=== PATIENT | male | born 1985 ===

== ENCOUNTER → 2021-04-02 | Outpatient (CLI) | payer MEDICAID ==
[~2021-04-02] MED LIST: ALBUTEROL SULF 2.5 MG/0.5ML(0.5%) NEB SOLN ONE
== END | disposition home or self-care (01) ==
LOC: RT 08:21
PROVIDERS: ATTEND Internal Medicine Pulmonary Disease
DX: J44.9 Chronic obstructive pulmonary disease, unspecified (principal); R05.3 Chronic cough; Z20.822 Contact with and (suspected) exposure to COVID-19; U09.9 Post COVID-19 condition, unspecified
CPT/HCPCS: 36415; 87426; 94060; 94727; 94729